=== PATIENT | male | born 1945 | race Caucasian/White ===

== ENCOUNTER 2022-12-05 07:57 | Outpatient (CLI) | payer OTHER, SELFPAY ==
[2022-12-05 09:05] LABS: Anion Gap 6 mmol/L (8-16); Blood Urea Nitrogen 25 mg/dL (9-20); Calcium 8.8 mg/dL (8.4-10.2); Carbon Dioxide 26 mmol/L (22-30); Chloride 106 mmol/L (98-107); Estimated Glomerular Filt Rate 53; Glucose 149 mg/dL (65-110); Potassium 5.2 mmol/L (3.4-5.0); Sodium 138 mmol/L (137-145)
== END 2022-12-05 07:58 | disposition home or self-care (01) ==
LOC: ANHSURGERY 08:02
PROVIDERS: Anesthesiology; PCP Family Medicine; Visit Provider Otolaryngology
DX: E11.40 Type 2 diabetes mellitus with diabetic neuropathy, unspecified (principal)
CPT/HCPCS: 36415; 80048

== ENCOUNTER 2022-12-08 | Day surgery (SDC) | payer OTHER, SELFPAY ==
--- NOTE | 2022-12-01 15:08 | PC.NURSE ---
Report to the Outpatient Waiting Room, entrance under the green pavilion located off [facility], at time ___0900____ on date __12/08/22 . Planned Procedure Time: _1100 . Time changes happen often and if your time is changed the preop area will call you the afternoon before. - You and your visitor will be asked to self-screen and do not enter if you have any COVID symptoms. - A mask is optional within the hospital at this time. Patients may have clear liquids (water, carbonated beverages, clear teas, apple juice) until 3 hours prior to surgery with a maximum of 20 ounces. - No food from midnight until time of surgery - Infants may have breast milk until 4 hours before surgery, infant formula 6 hours prior to surgery. - Children will be allowed to drink immediately following surgery. If applicable, please bring a bottle or sippy cup to assist with drinking. Juice, water, soda, and popsicles are readily available. For infants on formula, please bring formula the day of surgery. Pacifiers are allowed. Take the following medications with a SIP of water the morning of surgery: ____METOPROLOL DO NOT STOP ANY OF YOUR OTHER PRESCRIPTION MEDICATIONS PRIOR TO SURGERY ?EXCEPT THE FOLLOWING Medications to discontinue per physician ASPIRIN PER DR VELIZ_ - PATIENT TO CALL Please no make-up, nail australian, hairspray, perfume, deodorant, or body powder the day of surgery. No jewelry (including any body piercings) or valuables the day of surgery, leave them at home. Please take a shower or bath the night before, or the morning of, surgery with an antibacterial soap. Wear comfortable, loose fitting clothing. Children are encouraged to wear pajamas. - Jewelry must be removed prior to entering the operating room. Rings and piercings that are not removed may be cut off. - The hospital will not accept responsibility for valuables. - Please leave all valuables, including medications, at home the day of surgery. If you are going home after surgery, a licensed semi driver must drive you home. - NO public transportation without another adult if you receive anesthesia. - We recommend that an adult stay with you for 24 hours following discharge. - We also recommend that you do not drive, make important decision, drink alcoholic beverages, or take any drugs that were not prescribed by your health care provider for at least 24 hours after your discharge time. For Pediatric surgeries, we recommend two adults accompany the child home. Follow any additional instructions given to you from your surgeon. If you or anyone in your household have experienced Covid symptoms in the past week, please notify your surgeon or the nurse liaison at the phone number below for possible testing. Telephone instructions given to __PATIENT and asked if any additional questions and then verbalized understanding. Patient advised to call surgeon office or pre surgery nurse liaison [phone] if any additional questions.
[2022-12-01 15:21] VITALS: BMI 39.0
--- NOTE | 2022-12-07 13:22 | WPDANESEPPF ---
Anes - Initial Pre Proc Eval Procedure: Operation Date: 12/08/22 09:00 Proposed Procedures p Excision of Lesion Right Ear Canal - Blaise Ventura MD Date/Time: 12/07/22 13:22 Surgeon: Blaise Ventura MD Pre Op Diagnosis: lesion right ear canal Patient Data Age: 76 Gender: M Height: 1.8 m Weight: 127.05 kg Allergies Allergy/AdvReac Type Severity Reaction Status Date / Time shellfish derived Allergy Mild swollen lip Verified 12/21/22 14:06 strawberry Allergy Mild rashes Verified 12/21/22 14:06 azithromycin Allergy Unknown GI upset Verified 12/21/22 14:06 Home Medications Medication Instructions Recorded Confirmed Type aspirin 81 mg chewable tablet 81 mg PO DAILY #90 tabs 03/07/20 12/21/22 Rx (Aspirin Childrens) atorvastatin 20 mg tablet 20 mg PO DAILY #100 tabs 11/10/21 12/21/22 Rx empagliflozin 25 mg tablet 25 mg PO DAILY 03/16/22 12/21/22 History (Jardiance) allopurinol 300 mg tablet See Rx Instructions .Route 09/28/22 12/21/22 Rx .COMPLEX #100 tabs metformin 1,000 mg tablet See Rx Instructions .Route 09/28/22 12/21/22 Rx .COMPLEX #180 tabs olmesartan 40 mg tablet See Rx Instructions .Route 10/09/22 12/21/22 Rx .COMPLEX #90 tabs linagliptin 5 mg tablet (Tradjenta) See Rx Instructions .Route 10/16/22 12/21/22 Rx .COMPLEX #100 tabs glimepiride 2 mg tablet See Rx Instructions .Route 10/24/22 12/21/22 Rx .COMPLEX #90 tabs metoprolol succinate 25 mg See Rx Instructions .Route 12/06/22 12/21/22 Rx tablet,extended release 24 hr .COMPLEX #90 tabs furosemide 20 mg tablet See Rx Instructions .Route 12/11/22 12/21/22 Rx .COMPLEX #100 tabs Patient hx anesthesia problems: none Family hx anesthesia problems: none Results Review: All pre-operative results and documents have been reviewed as part of the pre-operative evaluation. [facility] Past Medical History Medical History (Reviewed 12/21/22 @ 14:07 by Melisa [facility]) Alcohol abuse, uncomplicated Atherosclerotic heart disease of [place] coronary artery without angina pectoris Atrial fibrillation Body mass index (bmi) 39.0-39.9, adult Chronic diastolic (congestive) heart failure Essential (primary) hypertension History of myocardial infarction History of tobacco use Idiopathic chronic gout, unspecified site, without tophus (tophi) Major depressive disorder, single episode, moderate Mixed hyperlipidemia Polyneuropathy in diseases classified elsewhere Type 2 diabetes mellitus with diabetic chronic kidney disease Type 2 diabetes mellitus with diabetic neuropathy, unspecified Venous insufficiency (chronic) (peripheral) Surgical History Surgical History (Reviewed 12/21/22 @ 14:07 by Melisa [facility]) History of cataract extraction bilateral eyes October 2020 Family History Family History (Reviewed 12/21/22 @ 14:07 by Melisa [facility]) Father Family history of respiratory disorder, Onset Age: 56 Mother Family history of diabetes mellitus in first degree relative Social History Social History (Reviewed 12/21/22 @ 14:07 by Melisa [facility]) Social History: Caffeine-coffee Smoking packs per day: 3 Smoking cigarettes per day: 60.0 Years smoked: 9 Smoking pack-years: 27.00 Smoking status: Former smoker Tobacco type: cigarettes Second hand tobacco smoke exposure: No Smoking end date: 06/18/67 Alcohol intake: current Drinks per week: 8 Alcohol use details: beer Substance use: never Substance use type: does not use Lack of Transportation: No Lack of Food: Never True Current Housing: I Have Housing Concerned About Future Housing: No Difficulty Paying Gas/Electric Bills: No Difficulty Paying for Meds: No Currently Unemployed: YES Education: Trade/Vocational Certificate Difficulty w/ Childcare or Family Care: No Living arrangements: alone Additional living arrangements comments: own house Occupation/Education: retired Gender identity (if
--- NOTE | 2022-12-07 18:07 | PM.IMHP ---
H&P: [facility] History of Present Illness Date/Time: 12/07/22 18:07 Chief Complaint: Right ear lesion Narrative: planned procedure Review of Systems Review of Systems: All systems reviewed & are unremarkable except as noted in HPI and below [facility] Past Medical History Medical History (Updated 12/07/22 @ 13:22 by Martin Hartley DO) Alcohol abuse, uncomplicated Atherosclerotic heart disease of [place] coronary artery without angina pectoris Atrial fibrillation Body mass index (bmi) 39.0-39.9, adult Chronic diastolic (congestive) heart failure Essential (primary) hypertension History of myocardial infarction History of tobacco use Idiopathic chronic gout, unspecified site, without tophus (tophi) Major depressive disorder, single episode, moderate Mixed hyperlipidemia Polyneuropathy in diseases classified elsewhere Type 2 diabetes mellitus with diabetic chronic kidney disease Type 2 diabetes mellitus with diabetic neuropathy, unspecified Venous insufficiency (chronic) (peripheral) Surgical History Surgical History History of cataract extraction bilateral eyes October 2020 Family History Family History Father Family history of respiratory disorder, Onset Age: 56 Mother Family history of diabetes mellitus in first degree relative Social History Social History Social History: Caffeine-coffee Smoking packs per day: 3 Smoking cigarettes per day: 60.0 Years smoked: 9 Smoking pack-years: 27.00 Smoking status: Former smoker Tobacco type: cigarettes Second hand tobacco smoke exposure: No Smoking end date: 06/18/67 Alcohol intake: current Drinks per week: 8 Alcohol use details: beer Substance use: never Substance use type: does not use Lack of Transportation: No Lack of Food: Never True Current Housing: I Have Housing Concerned About Future Housing: No Difficulty Paying Gas/Electric Bills: No Difficulty Paying for Meds: No Currently Unemployed: YES Education: Trade/Vocational Certificate Difficulty w/ Childcare or Family Care: No Living arrangements: alone Additional living arrangements comments: own house Occupation/Education: retired Gender identity (if verbalized by the patient): Male Sexual Orientation (if Verbalized by the Patient): Straight or Heterosexual Spiritual care concerns: No Agree to blood products: Yes Meds Home Medications and Allergies Home Medications Medication Instructions Recorded Confirmed Type aspirin 81 mg chewable tablet 81 mg PO DAILY #90 tabs 03/07/20 12/01/22 Rx (Aspirin Childrens) atorvastatin 20 mg tablet 20 mg PO DAILY #100 tabs 11/10/21 12/01/22 Rx empagliflozin 25 mg tablet 25 mg PO DAILY 03/16/22 12/01/22 History (Jardiance) furosemide 20 mg tablet See Rx Instructions .Route 06/29/22 12/01/22 Rx .COMPLEX #100 tabs allopurinol 300 mg tablet See Rx Instructions .Route 09/28/22 12/01/22 Rx .COMPLEX #100 tabs metformin 1,000 mg tablet See Rx Instructions .Route 09/28/22 12/01/22 Rx .COMPLEX #180 tabs olmesartan 40 mg tablet See Rx Instructions .Route 10/09/22 12/01/22 Rx .COMPLEX #90 tabs linagliptin 5 mg tablet (Tradjenta) See Rx Instructions .Route 10/16/22 12/01/22 Rx .COMPLEX #100 tabs glimepiride 2 mg tablet See Rx Instructions .Route 10/24/22 12/01/22 Rx .COMPLEX #90 tabs metoprolol succinate 25 mg See Rx Instructions .Route 12/06/22 Rx tablet,extended release 24 hr .COMPLEX #90 tabs Allergies Allergy/AdvReac Type Severity Reaction Status Date / Time shellfish derived Allergy Mild swollen lip Verified 12/01/22 14:51 strawberry Allergy Mild rashes Verified 12/01/22 14:51 azithromycin Allergy Unknown GI upset Verified 12/01/22 14:51 Exam Narrative: right EAC lesion Assessmen
[2022-12-08] VITALS (7 sets, daily range): BP systolic 107–147; BP diastolic 51–69; PULSE 52–78; RESP 14–22; TEMP 36.4–37.3; O2SAT 93–98; BMI 38.5
--- NOTE | 2022-12-08 07:16 | WPDHPUPDATE1 ---
History and Physical Update Update Date/Time: 12/08/22 07:16 History and Physical has been reviewed, including an updated exam of the patient. There are NO changes in the patient's condition. Risks, benefits, and alternatives have been discussed and questions answered. Patient agrees to proceed with procedure.
[2022-12-08] MEDS: LACTATED RINGERS 1,000 ML 30 ML IV CONT (07:35)
[2022-12-08 07:41] LABS: Glucose Point of Care 186 mg/dl (65-105)
[2022-12-08] MEDS: ceFAZolin 3 GM/D5W 100 ML 100 ML IVPB (08:45)
[2022-12-08] MEDS: LIDO 1%/EPINEPHRINE 1:100,000 50 ML VIAL INFILTRATE (09:01)
[2022-12-08] MEDS: NEOMYCIN/POLYMYXIN/BACITRACIN OINTMENT 15 GM TUBE 1 APPLIC TOPICAL (09:13)
[2022-12-08 09:24] LABS: Glucose Point of Care 179 mg/dl (65-105)
--- NOTE | 2022-12-08 09:38 | W.PM.PROC2 ---
Procedure Note - Detailed Date of Procedure 12/08/22 Pre-op Diagnosis lesion right ear canal Post-op Diagnosis Same Procedure Performed Right ear canal lesion Surgeon Blaise Ventura MD Anesthesia General ( LMA) Indications see above Findings firm mass removed from the right EAC pedicled on the inferior EAC pedicle about 1 cm wide lesion about 1.5 about 2 cm across. Meet minimal bleeding minimal Description of Procedure patient identified consent verified. Patient brought operating. Time-out performed. General anesthesia induced LMA secured. Patient prepped draped positioned procedure confirmed 2nd time-out performed. Lesion grasped with pickups stump was cauterized with bipolar electrocautery setting of 12. Excised with sharp scissors. Stump was a base was cauterized bit more. Ointment placed. Canal normal otherwise middle ear TM normal. Patient tolerated the procedure well no complications. Lesion measured about 1.5 at 2 cm lots a lesion measured 2 cm across. Estimated Blood Loss 0 Drains No Packing No Pathology Yes Complications No immediate complications Condition Stable Disposition PACU [facility] Billing Surgery - Charge Forward: Surgery Billing
== END 2022-12-08 10:41 | disposition home or self-care (01) ==
PROVIDERS: PCP Family Medicine; Visit Provider Otolaryngology
PROC: (CPT 11442; principal; 2022-12-08 09:00)
DX: D22.21 Melanocytic nevi of right ear and external auricular canal (principal); I13.0 Hypertensive heart and chronic kidney disease with heart failure and stage 1 through stage 4 chronic kidney disease, or unspecified chronic kidney disease; I50.32 Chronic diastolic (congestive) heart failure; E11.22 Type 2 diabetes mellitus with diabetic chronic kidney disease; N18.9 Chronic kidney disease, unspecified; I25.2 Old myocardial infarction; I48.91 Unspecified atrial fibrillation; E11.40 Type 2 diabetes mellitus with diabetic neuropathy, unspecified; E78.2 Mixed hyperlipidemia; F32.1 Major depressive disorder, single episode, moderate; I25.10 Atherosclerotic heart disease of native coronary artery without angina pectoris; M1A.00X0 Idiopathic chronic gout, unspecified site, without tophus (tophi); I87.2 Venous insufficiency (chronic) (peripheral); Z79.82 Long term (current) use of aspirin; Z79.84 Long term (current) use of oral hypoglycemic drugs; Z87.891 Personal history of nicotine dependence; E66.9 Obesity, unspecified; Z68.38 Body mass index [BMI] 38.0-38.9, adult
CPT/HCPCS: 11442; 82948; 88305; A9270; J0690; J2405; J2704; J3010; J7120